=== PATIENT | female | born 1995 | race Caucasian/White ===

== ENCOUNTER 2016-10-20 08:43 | Emergency (ER) | payer BC ==
[2016-10-20 09:12] VITALS: BP 101/71
--- NOTE | 2016-10-20 09:40 | UC ---
Throat Pain/Nasal Golden HPI - HPI Summary HPI Summary: ST for 2d. Now with congestion and burning in chest. Hatch feverish last night, body aches, low energy, poor appetite, LEON today. Did get a flu shot - History of Current Complaint Chief Complaint: UCRespiratory Stated Complaint: THROAT Time Seen by Provider: 10/20/16 08:53 Hx Obtained From: Patient Hx Last Menstrual Period: 10/01/16 Onset/Duration: Gradual Onset, Lasting Days - 2 Severity: Mild Cough: Nonproductive - mild Associated Signs & Symptoms: Positive: Dysphagia, Hoarseness. Negative: Sinus Discomfort, Nasal Discharge - Epiglottits Risk Factors Epiglottis Risk Factors: Negative - Allergies/Home Medications Allergies/Adverse Reactions: Allergies Allergy/AdvReac Type Severity Reaction Status Date / Time No Known Allergies Allergy Verified 10/20/16 09:07 Home Medications: Home Medications Acetaminophen 500 mg PO ONCE PRN 10/20/16 [History Confirmed 10/20/16] PMH/Surg Hx/FS Hx/Imm Hx Previously Healthy: Yes - Surgical History Surgical History: None - Family History Known Family History: Positive: Hypertension - Social History Occupation: Student Lives: Alone - dorm Alcohol Use: Weekly Substance Use Type: None Smoking Status (MU): Never Smoked Tobacco - Immunization History Most Recent Influenza Vaccination: not this season Review of Systems Constitutional: Fever, Chills, Fatigue Skin: Negative Eyes: Negative ENT: Sore Throat, Nasal Discharge Respiratory: Cough - "just starting" Cardiovascular: Negative Gastrointestinal: Negative Genitourinary: Negative Motor: Negative Neurovascular: Negative Musculoskeletal: Negative Neurological: Negative Psychological: Negative All Other Systems Reviewed And Are Negative: Yes Physical Exam Triage Information Reviewed: Yes Appearance: Well-Appearing, No Pain Distress, Well-Nourished Vital Signs: Initial Vital Signs Temp 98 F 10/20/16 09:08 Pulse 78 10/20/16 09:08 Resp 14 10/20/16 09:08 BP 101/71 10/20/16 09:08 Pulse Ox 100 10/20/16 09:08 Vital Signs Reviewed: Yes Eye Exam: Normal Eyes: Positive: Conjunctiva Clear ENT: Positive: Hearing grossly normal, Pharyngeal erythema - mild; tonsillar stone on right, Nasal congestion, TMs normal, Tonsillar swelling - mild, Muffled /hoarse voice - hoarse Neck exam: Normal Neck: Positive: Supple, Nontender Respiratory Exam: Normal Respiratory: Positive: Lungs clear, Normal breath sounds, No respiratory distress, No accessory muscle use Diagnostics - Laboratory Diagnostic Studies Completed/Ordered: Strep neg Throat Pain/Nasal Course/Dx - Differential Dx/Diagnosis Differential Diagnosis/HQI/PQRI: Influenza, Pharyngitis, Sinusitis, URI Provider Diagnoses: URI Discharge - Discharge Plan Condition: Stable Disposition: HOME Prescriptions: Guaifenesin-Codeine [Cheratussin AC] 1 - 2 teasp PO Q6HR PRN #120 ml MDD 30ml PRN Reason: sore throat or cough Patient Education Materials: Upper Respiratory Infection (ED) Forms: *School Release Referrals: Non Staff,Doctor [Primary Care Provider] -
== END 2016-10-20 09:50 | disposition home or self-care (01) ==
LOC: UCCORT 08:43
DX: J06.9 Acute upper respiratory infection, unspecified (principal)
CPT/HCPCS: 87651; 99212; G0463